=== PATIENT | female | born 1945 | race Caucasian/White ===

== ENCOUNTER → 2023-05-15 08:00 | Outpatient (REF) | payer MEDICARE, SELFPAY ==
[2023-05-15 08:53] LABS: % Basophils 1.1 % (0-2); % Eosinophils 1.9 % (0-6); % Immature Granulocytes 0.3 % (0-0.5); % Lymphocytes 38.3 % (20.5-51.1); % Monocytes 9.6 % (1.7-9.3); % Neutrophils 48.8 % (42.2-75.2); Absolute Eosinophils 0.1 10^3/uL (0-0.7); Absolute Lymphocytes 1.4 10^3/uL (1.2-3.4); Absolute Monocytes 0.4 10^3/uL (0.1-0.6); Absolute Neutrophils 1.8 10^3/uL (1.4-6.5); Hematocrit 43.1 % (37.0-47.0); Hemoglobin 14.3 g/dL (12.0-16.0); Mean Corp Hgb Conc. 33.2 g/dL (33.0-37.0); Mean Corpuscular Hgb 30.8 pg (27.0-31.0); Mean Corpuscular Volume 92.9 fL (81.0-99.0); Mean Platelet Volume 11.7 fL (7.4-10.4); Nucleated Red Blood Cells % 0 %; Platelet Count 111 10^3/uL (130-400); Red Blood Cell Count 4.64 10^6/uL (4.20-5.40); Red Cell Dist. Width 13.3 % (11.5-14.5); White Blood Cell Count 3.7 10^3/uL (4.8-10.8)
[2023-05-15 09:09] LABS: ALT (SGPT) 47 U/L (0-35); AST (SGOT) 42 U/L (14-36); Albumin 4.1 g/dl (3.5-5.0); Alkaline Phosphatase 103 U/L (38-126); Blood Urea Nitrogen 17 mg/dl (7-17); Calcium 9.3 mg/dl (8.4-10.2); Carbon Dioxide 28 mmol/L (22-30); Chloride 105 mmol/L (98-107); Glucose 97 mg/dl (70-99); HDL Cholesterol 55 mg/dl; LDL Cholesterol, Calculated 49 mg/dl; Potassium 4.1 mmol/L (3.5-5.1); Sodium 136 mmol/L (135-145); Total Bilirubin 0.7 mg/dl (0.2-1.3); Total Cholesterol 118 mg/dl (50-199); Total Protein 6.4 g/dl (6.3-8.2); Triglyceride 73 mg/dl (10-149); Very Low Density Lipoprotein 14 mg/dl (0-30); eGFR > 60.00
[2023-05-15 09:33] LABS: TSH Reflex To Free T4 4.22 uIU/ml (0.47-4.68)
== END ==
LOC: REG 08:00
PROVIDERS: ATTENDING PHYSICIAN Internal Medicine
DX: E78.00 Pure hypercholesterolemia, unspecified (principal); M32.9 Systemic lupus erythematosus, unspecified; I10 Essential (primary) hypertension; Z79.52 Long term (current) use of systemic steroids
CPT/HCPCS: 36415; 80053; 80061; 84443; 85025

== ENCOUNTER → 2023-06-01 07:50 | Outpatient (REF) | payer MEDICARE, SELFPAY | LOC: WDC 07:50 | PROVIDERS: ATTENDING PHYSICIAN Surgery; FAMILY PHYSICIAN Internal Medicine | DX: R92.2 Inconclusive mammogram (principal); C50.412 Malignant neoplasm of upper-outer quadrant of left female breast | CPT/HCPCS: 76641 ==

== ENCOUNTER → 2023-07-27 07:49 | Outpatient (REF) | payer MEDICARE, SELFPAY ==
[2023-07-27 09:16] LABS: ALT (SGPT) 31 U/L (0-35); AST (SGOT) 30 U/L (14-36); Albumin 4.1 g/dl (3.5-5.0); Alkaline Phosphatase 81 U/L (38-126); Blood Urea Nitrogen 12 mg/dl (7-17); Calcium 9.5 mg/dl (8.4-10.2); Carbon Dioxide 27 mmol/L (22-30); Chloride 104 mmol/L (98-107); Glucose 100 mg/dl (70-99); HDL Cholesterol 57 mg/dl; LDL Cholesterol, Calculated 108 mg/dl; Potassium 4.3 mmol/L (3.5-5.1); Sodium 138 mmol/L (135-145); Total Bilirubin 0.4 mg/dl (0.2-1.3); Total Cholesterol 195 mg/dl (50-199); Total Protein 6.6 g/dl (6.3-8.2); Triglyceride 151 mg/dl (10-149); Very Low Density Lipoprotein 30 mg/dl (0-30); eGFR > 60.00
== END ==
LOC: REG 07:49
PROVIDERS: ATTENDING PHYSICIAN Internal Medicine
DX: Z00.00 Encounter for general adult medical examination without abnormal findings (principal); E78.00 Pure hypercholesterolemia, unspecified
CPT/HCPCS: 36415; 80053; 80061

== ENCOUNTER → 2023-09-12 10:10 | Outpatient (REF) | payer MEDICARE, SELFPAY | LOC: HWRCS 10:10 | PROVIDERS: ATTENDING PHYSICIAN Internal Medicine Cardiovascular Disease; FAMILY PHYSICIAN Internal Medicine | DX: I25.810 Atherosclerosis of coronary artery bypass graft(s) without angina pectoris (principal); I44.7 Left bundle-branch block, unspecified; R07.89 Other chest pain | CPT/HCPCS: 93306 ==

== ENCOUNTER → 2023-11-14 08:16 | Outpatient (REF) | payer MEDICARE, SELFPAY ==
[2023-11-14 10:03] LABS: ALT (SGPT) 33 U/L (0-35); AST (SGOT) 34 U/L (14-36); HDL Cholesterol 52 mg/dl; LDL Cholesterol, Calculated 86 mg/dl; Total Cholesterol 156 mg/dl (50-199); Triglyceride 93 mg/dl (10-149); Very Low Density Lipoprotein 18 mg/dl (0-30)
== END ==
LOC: HWRAD 08:16
PROVIDERS: ATTENDING PHYSICIAN Internal Medicine Gastroenterology; FAMILY PHYSICIAN Internal Medicine; REFERRING PHYSICIAN Internal Medicine Cardiovascular Disease
DX: R79.89 Other specified abnormal findings of blood chemistry (principal); I25.810 Atherosclerosis of coronary artery bypass graft(s) without angina pectoris
CPT/HCPCS: 36415; 76700; 80061; 84450; 84460

== ENCOUNTER → 2023-12-07 06:24 | Day surgery (SDC) | payer MEDICARE, SELFPAY | LOC: GI 06:24 | PROVIDERS: ATTENDING PHYSICIAN Internal Medicine Gastroenterology | DX: Z12.11 Encounter for screening for malignant neoplasm of colon (principal); K57.30 Diverticulosis of large intestine without perforation or abscess without bleeding; K64.8 Other hemorrhoids; K55.20 Angiodysplasia of colon without hemorrhage; K63.89 Other specified diseases of intestine; D12.2 Benign neoplasm of ascending colon; K63.5 Polyp of colon; Z86.010 Personal history of colon polyps | CPT/HCPCS: 45385; 45380; 88305 ==

== ENCOUNTER → 2024-01-30 12:31 | Outpatient (REF) | payer MEDICARE, SELFPAY | LOC: RAD 12:31 | PROVIDERS: ATTENDING PHYSICIAN Nurse Practitioner Family; FAMILY PHYSICIAN Internal Medicine | DX: M25.551 Pain in right hip (principal) | CPT/HCPCS: 73502 ==

== ENCOUNTER → 2024-03-11 15:19 | Outpatient (REF) | payer MEDICARE, SELFPAY | LOC: PAVMRI 15:19 | PROVIDERS: ATTENDING PHYSICIAN Nurse Practitioner Family; FAMILY PHYSICIAN Internal Medicine | DX: M25.551 Pain in right hip (principal) | CPT/HCPCS: 73721 ==

== ENCOUNTER 2024-03-12 09:01 | Outpatient (RCR) | payer MEDICARE, SELFPAY | END 2024-03-12 23:59 | disposition home or self-care (01) | LOC: RPT 09:01 | PROVIDERS: ATTENDING PHYSICIAN Nurse Practitioner Family; FAMILY PHYSICIAN Internal Medicine | DX: M25.551 Pain in right hip (principal); Z73.6 Limitation of activities due to disability; R26.89 Other abnormalities of gait and mobility | CPT/HCPCS: 97010; 97110; 97140; 97162 ==

== ENCOUNTER → 2024-03-14 13:28 | Outpatient (REF) | payer MEDICARE, SELFPAY | LOC: HWWDC 13:28 | PROVIDERS: ATTENDING PHYSICIAN Obstetrics & Gynecology Gynecology; FAMILY PHYSICIAN Internal Medicine | DX: Z12.31 Encounter for screening mammogram for malignant neoplasm of breast (principal); Z78.0 Asymptomatic menopausal state | CPT/HCPCS: 77063; 77067; 77080 ==

== ENCOUNTER 2024-04-01 13:04 | Outpatient (RCR) | payer MEDICARE, SELFPAY | END 2024-04-09 08:25 | disposition home or self-care (01) | LOC: RPT 13:04 | PROVIDERS: ATTENDING PHYSICIAN Nurse Practitioner Family; FAMILY PHYSICIAN Internal Medicine | DX: M25.551 Pain in right hip (principal); Z73.6 Limitation of activities due to disability; R26.89 Other abnormalities of gait and mobility | CPT/HCPCS: 97010; 97110; 97140 ==

== ENCOUNTER → 2024-05-02 10:18 | Outpatient (REF) | payer MEDICARE, SELFPAY ==
[2024-05-02 16:39] LABS: % Basophils 0.7 % (0-2); % Eosinophils 1.2 % (0-6); % Immature Granulocytes 0.2 % (0-0.5); % Lymphocytes 24.9 % (20.5-51.1); % Monocytes 7.9 % (1.7-9.3); % Neutrophils 65.1 % (42.2-75.2); Absolute Eosinophils 0.1 10^3/uL (0-0.7); Absolute Lymphocytes 1.1 10^3/uL (1.2-3.4); Absolute Monocytes 0.3 10^3/uL (0.1-0.6); Absolute Neutrophils 2.8 10^3/uL (1.4-6.5); Hemoglobin 15.2 g/dL (12.0-16.0); Mean Corpuscular Hgb 31.9 pg (27.0-31.0); Mean Corpuscular Volume 96.4 fL (81.0-99.0); Mean Platelet Volume 11.1 fL (7.4-10.4); Nucleated Red Blood Cells % 0 %; Platelet Count 121 10^3/uL (130-400); Red Blood Cell Count 4.77 10^6/uL (4.20-5.40); Red Cell Dist. Width 13.8 % (11.5-14.5); White Blood Cell Count 4.3 10^3/uL (4.8-10.8)
[2024-05-02 16:41] LABS: ALT (SGPT) 45 U/L (0-35); AST (SGOT) 34 U/L (14-36); Albumin 4.4 g/dl (3.5-5.0); Alkaline Phosphatase 86 U/L (38-126); Blood Urea Nitrogen 13 mg/dl (7-17); Calcium 9.4 mg/dl (8.4-10.2); Carbon Dioxide 28 mmol/L (22-30); Chloride 97 mmol/L (98-107); Glucose 98 mg/dl (70-99); HDL Cholesterol 64 mg/dl; LDL Cholesterol, Calculated 66 mg/dl; Potassium 4.7 mmol/L (3.5-5.1); Sodium 131 mmol/L (135-145); Total Bilirubin 0.8 mg/dl (0.2-1.3); Total Cholesterol 149 mg/dl (50-199); Total Protein 6.5 g/dl (6.3-8.2); Triglyceride 97 mg/dl (10-149); Very Low Density Lipoprotein 19 mg/dl (0-30); eGFR > 60.00
[2024-05-02 17:11] LABS: TSH Reflex To Free T4 2.02 uIU/ml (0.47-4.68)
== END ==
LOC: HWRAD 10:18
PROVIDERS: ATTENDING PHYSICIAN Internal Medicine; REFERRING PHYSICIAN Obstetrics & Gynecology Gynecology
DX: R10.2 Pelvic and perineal pain (principal); I25.810 Atherosclerosis of coronary artery bypass graft(s) without angina pectoris; E78.00 Pure hypercholesterolemia, unspecified; I10 Essential (primary) hypertension; I25.5 Ischemic cardiomyopathy; I25.10 Atherosclerotic heart disease of native coronary artery without angina pectoris; R00.2 Palpitations
CPT/HCPCS: 36415; 76830; 76856; 80053; 80061; 84443; 85025

== ENCOUNTER → 2024-07-19 14:46 | Outpatient (REF) | payer MEDICARE, SELFPAY ==
[2024-07-19 16:07] LABS: % Basophils 0.6 % (0-2); % Eosinophils 0.6 % (0-6); % Immature Granulocytes 0.2 % (0-0.5); % Lymphocytes 27.5 % (20.5-51.1); % Monocytes 6.8 % (1.7-9.3); % Neutrophils 64.3 % (42.2-75.2); Absolute Lymphocytes 1.4 10^3/uL (1.2-3.4); Absolute Monocytes 0.3 10^3/uL (0.1-0.6); Absolute Neutrophils 3.2 10^3/uL (1.4-6.5); Hematocrit 41.9 % (37.0-47.0); Mean Corp Hgb Conc. 33.4 g/dL (33.0-37.0); Mean Corpuscular Hgb 31.5 pg (27.0-31.0); Mean Corpuscular Volume 94.2 fL (81.0-99.0); Mean Platelet Volume 11.4 fL (7.4-10.4); Nucleated Red Blood Cells % 0 %; Platelet Count 124 10^3/uL (130-400); Red Blood Cell Count 4.45 10^6/uL (4.20-5.40); Red Cell Dist. Width 13.2 % (11.5-14.5)
[2024-07-19 16:21] LABS: ALT (SGPT) 28 U/L (0-35); AST (SGOT) 27 U/L (14-36); Albumin 4.3 g/dl (3.5-5.0); Alkaline Phosphatase 85 U/L (38-126); Blood Urea Nitrogen 22 mg/dl (7-17); Calcium 9.4 mg/dl (8.4-10.2); Carbon Dioxide 27 mmol/L (22-30); Chloride 105 mmol/L (98-107); Glucose 100 mg/dl (70-99); Potassium 4.8 mmol/L (3.5-5.1); Sodium 140 mmol/L (135-145); Total Bilirubin 0.4 mg/dl (0.2-1.3); Total Protein 6.4 g/dl (6.3-8.2); eGFR > 60.00
[2024-07-19 16:39] LABS: Erythrocyte Sed Rate 5 mm/hour (0-20)
== END ==
LOC: REG 14:46
PROVIDERS: ATTENDING PHYSICIAN Internal Medicine
DX: R74.01 Elevation of levels of liver transaminase levels (principal); M25.50 Pain in unspecified joint; R53.83 Other fatigue
CPT/HCPCS: 36415; 80053; 85025; 85652

== ENCOUNTER → 2024-08-09 14:23 | Outpatient (REF) | payer MEDICARE, SELFPAY | LOC: RAD 14:23 | PROVIDERS: ATTENDING PHYSICIAN Internal Medicine | DX: M54.50 Low back pain, unspecified (principal); M25.551 Pain in right hip; M25.552 Pain in left hip | CPT/HCPCS: 72100 ==

== ENCOUNTER 2024-10-15 12:35 | Emergency (ER) | payer MEDICARE, SELFPAY ==
[2024-10-15] VITALS (7 sets, daily range): BP systolic 106–129; BP diastolic 63–105
[2024-10-15 13:06] LABS: Hematocrit 43.6 % (37.0-47.0); Hemoglobin 14.7 g/dL (12.0-16.0); Mean Corp Hgb Conc. 33.7 g/dL (33.0-37.0); Mean Corpuscular Volume 92.2 fL (81.0-99.0); Nucleated Red Blood Cells % 0 %; Platelet Count 135 10^3/uL (130-400); Red Cell Dist. Width 14.3 % (11.5-14.5)
[2024-10-15 13:18] LABS: ALT (SGPT) 30 U/L (0-35); AST (SGOT) 27 U/L (14-36); Albumin 4.4 g/dl (3.5-5.0); Alkaline Phosphatase 70 U/L (38-126); Blood Urea Nitrogen 11 mg/dl (7-17); Calcium 9.7 mg/dl (8.4-10.2); Carbon Dioxide 23 mmol/L (22-30); Chloride 104 mmol/L (98-107); Glucose 108 mg/dl (70-99); Potassium 4.1 mmol/L (3.5-5.1); Sodium 135 mmol/L (135-145); Total Protein 6.5 g/dl (6.3-8.2); eGFR > 60.00
--- NOTE | 2024-10-15 13:44 | ED.GENMED ---
History of Present Illness
General
Chief Complaint: Rectal Bleeding
Time Seen by Provider: 10/15/24 13:12
Nursing documentation reviewed up to this point in time: agreed with
History of Present Illness
History of Present Illness:
79-year-old female presents to the ER for further evaluation of rectal bleeding. Patient started with bright red rectal bleeding Monday evening after she had had a profound episode of loose watery brown diarrhea. Patient states that she had
several bloody bowel movements between Monday night into Monday, almost hourly. Patient was seen in the emergency department at [facility] where she underwent labs and a CT scan. She was given a prescription for Levaquin and
discharged to follow-up with her lapel baster. Patient states that the frequency of bowel movements has improved significantly, she only had 1 liquidy stool this morning which appeared to be primarily bloody in nature. She also reports
improvement in her abdominal discomfort. Given that she had had another bloody bowel movement she came to the ER for further evaluation and care. She is not on any anticoagulants other than a baby aspirin daily. She denies feeling lightheaded or
dizzy but does feel dehydrated. She denies any syncope or trauma. No prior personal history of bloody stools. No recent instrumentation.
Past History
Past History
ED Past Medical History: HTN; Negative Arrthythmia or Asthma
ED Past Surgical History: Orthopedic (achilles)
Social History
Tobacco: Non-smoker
Alcohol: None
Drug: None
Personal:
Living: with family
Employment: Retired
Family History
Family History: Hypertension
Review of Systems
Review of Systems
Allergies reviewed?: Yes
Phy Exam
Physical Exam
Physical Exam:
Patient is awake, alert, appears no acute distress, mucous members with, conjunctiva pain, sclera and icteric, heart regular rate and rhythm without murmurs or ectopy, lungs are clear to auscultation without wheezes rales or rhonchi, abdomen is soft
with mild diffuse pain on palpation, no guarding or rebound, extremities without edema, 2+ DP pulses present symmetric bilateral feet, GCS is 15, no rash
Course
Orders/Labs/Results
Orders:
Orders
10/15/24 12:40
EKG [Electrocardiogram (*1)] Urgent
Reason for Study: Palpitations
EKG- Treatment ONCE
10/15/24 12:50
Type And Crossmatch [Type+Screen] Urgent
CBC/With Diff [Complete Blood Count/With Diff] Urgent
CMP [Comprehensive Metabolic Panel] Urgent
10/15/24 13:45
0.9% Sodium Chloride 1000 ml [Nss] 1,000 ml IV BOLUS
10/15/24 14:13
ABO2 Urgent
BBK Wristband Number:
Associate notified that ABO2 has been ordered: [id number]
Date: 10/15/24
Time: 13:[address] Sql Developer ID: [id number]
10/15/24 14:38
STOOL [C difficile Antigen & Toxins] Routine
ALYSHA Source: Feces/Stool
Specimen Description:
Comment: results to Dr Monserrat Crocker
Stool Culture Routine
ALYSHA Source: Feces/Stool
Specimen Description:
Comment: results to Dr Monserrat Crocker
Stool For WBC Routine
ALYSHA Source: Feces/Stool
Specimen Description:
Comment: results to Dr Monserrat Crocker
Abnormal Lab Results
10/15/24
12:50
MCH 31.1 H pg
(27.0-31.0)
Glucose 108 H mg/dl
(70-99)
10/15/24 12:50
10/15/24 12:50
Very reassuring hemoglobin at 14.7. Kidney function preserved, normal BUN
Vital Signs
Initial and Last Documented VS:
Initial Vital Signs
Temp Pulse Resp BP Pulse Ox
98.3 F 100 15 118/88 94
10/15/24 12:37 08/05/25 12:37 10/15/24 12:37 10/15/24 12:37 10/15/24 12:37
Last Documented Vital Signs
Temp Pulse Resp BP Pulse Ox
98.3 F 100 15 118/88 94
10/15/24 12:37 10/15/24 12:37 10/15/24 12:37 10/15/24 12:37 10/15/24 13:45
MDM/Problems Addressed
Differential Diagnosis Includes:
Differential diagnosis considered but not limited to colitis, diverticulitis, AVM along with other etiologies considered
Chronic conditions affecting care:
Long-term use of aspirin, CAD, cardiomyopathy
*Pulse Oximetry
SaO2: 94
Oxygen Mode of Delivery: Room air
Patient hypoxic: no
*Critical Care Note
Total Time (30-74mins, 75-104mins- exclusive of procedures): Not Applicable
Data Reviewed
Review of Other/Old Records Reveals: Labs (I was able to review labs from ER visit yesterday-white blood count was 1, hemoglobin stable compared to today. Please see results scanned into the electronic medical record) and Radiology Studies (I was
able to review CT result from ER visit yesterday showing uncomplicated colitis of the descending colon sigmoid colon and rectum, no acute hemorrhage)
Update Note
Update Note:
I reviewed all today's results with patient and present bedside, very reassuring that hemoglobin is still well within normal. Patient is hemodynamically stable. No significant electrolyte dyscrasia. I reviewed full patient presentation,
history, ER visit results from yesterday and today's assessment with on-call lapel baster, who is also the patient's primary lapel baster, Dr. Crocker. She would agree that patient would be stable for discharge home but would recommend
addition of stool studies and for patient to hold NSAIDs. Patient and present bedside agree with plan. If she is unable to provide bowel movement while here, will provide prescription for outpatient stool culture.
ED Attending Note
-
Portions of this chart may have been created with voice recognition software.� Occasional wrong word or��sound alike� substitutions may have occurred due to the inherent limitations of voice recognition software.
Discharge Plan
Departure
Patient Disposition: Home (Routine Discharge)
Date of Disposition: 10/15/24
Time of Disposition: 15:43
Patient with high blood pressure during this ER visit?: No
Discharge Problem:
Bright red rectal bleeding, Colitis
Instructions: Colitis - Discharge instructions, Low-fiber diet
Prescriptions:
No Action
aspirin 81 MG tablet,chewable
81 mg PO DAILY
polyethylene glycol 3350 17 GRAMS powder in packet
17 grams PO HSPRN PRN (Reason: constapation)
Systane (PF) 1 EACH dropperette
1 drp BOTH EYES BIDPRN PRN (Reason: irratation)
PreserVision AREDS-2 1 EACH capsule
1 cap PO HS
cholecalciferol (vitamin D3) 2,000 UNITS tablet
2,000 units PO DAILY
metoprolol succinate 12.5 MG tablet extended release 24 hr
12.5 mg PO HS 0RF
atorvastatin [Lipitor] 10 mg Tablet
10 mg PO MOTH@1900
cyanocobalamin (vitamin B-12) 1,000 mcg Tablet
1,000 mcg PO DAILY
vitamin B complex [B Complete] Tablet
1 tab PO DAILY
levofloxacin 500 mg Tablet
500 mg PO DAILY
Rx Instructions:
for 5 days starting 10/14/24
magnesium oxide 250 mg magnesium Tablet
250 mg PO HS
Visbiome 112.5 billion cell Capsule
1 cap PO DAILY
Referrals:
Jade Harden MD [Family Provider, Internal Medicine]
Monserrat Crocker MD [Active, Gastroenterology] - Next open appointment
Activity Restrictions/Additional Instructions:
Complete course of antibiotics (Levaquin) as currently prescribed. Please follow a clear liquid diet until the bleeding resolves, then you may initiate a low residue diet. Please avoid using NSAIDs (aspirin, ibuprofen, naproxen) until bleeding
resolves. Please contact gastroenterology office schedule appointment for reevaluation and further care. Please obtain stool cultures as prescribed
Interventions
Interventions:
*Risk Screen - Suicide Last Done: 10/15/24 12:37
*General Assessment Last Done: 10/15/24 12:37
*ED COVID-19 Vaccine History Last Done: 10/15/24 12:37
Discharge Date and Time
Print Language: GEORGIAN
[2024-10-15] MEDS: NSS 1000 IV (14:26)
== END 2024-10-15 17:00 | disposition home or self-care (01) ==
LOC: EMR 12:35
PROVIDERS: Emergency Medicine; EMERGENCY PHYSICIAN Emergency Medicine; FAMILY PHYSICIAN Internal Medicine
DX: K62.5 Hemorrhage of anus and rectum (principal); R10.9 Unspecified abdominal pain; K52.9 Noninfective gastroenteritis and colitis, unspecified; I10 Essential (primary) hypertension; Z79.82 Long term (current) use of aspirin; Z88.1 Allergy status to other antibiotic agents; Z88.3 Allergy status to other anti-infective agents; Z88.0 Allergy status to penicillin; Z88.2 Allergy status to sulfonamides
CPT/HCPCS: 99284; 96360; 80053; 85025; 86850; 86900; 86901; 93005

== ENCOUNTER → 2024-10-19 08:34 | Outpatient (REF) | payer MEDICARE, SELFPAY | LOC: PAVMRI 08:34 | PROVIDERS: ATTENDING PHYSICIAN Psychiatry & Neurology Neurology; FAMILY PHYSICIAN Internal Medicine | DX: M54.50 Low back pain, unspecified (principal); M54.16 Radiculopathy, lumbar region | CPT/HCPCS: 72148 ==

== ENCOUNTER → 2024-11-01 12:54 | Outpatient (REF) | payer MEDICARE, SELFPAY | LOC: WDC 12:54 | PROVIDERS: ATTENDING PHYSICIAN Surgery; FAMILY PHYSICIAN Internal Medicine | DX: R92.2 Inconclusive mammogram (principal) | CPT/HCPCS: 76641 ==

== ENCOUNTER → 2024-12-10 11:32 | Outpatient (REF) | payer MEDICARE, SELFPAY | LOC: HWRAD 11:32 | PROVIDERS: ATTENDING PHYSICIAN Internal Medicine | DX: N28.1 Cyst of kidney, acquired (principal) | CPT/HCPCS: 76775 ==

== ENCOUNTER → 2025-02-19 13:33 | Outpatient (REF) | payer MEDICARE, SELFPAY | LOC: RAD 13:33 | PROVIDERS: ATTENDING PHYSICIAN Internal Medicine | DX: M79.89 Other specified soft tissue disorders (principal); R22.43 Localized swelling, mass and lump, lower limb, bilateral | CPT/HCPCS: 93970 ==